=== PATIENT | male | born 1950 | race Caucasian/White ===

== ENCOUNTER 2023-11-16 07:21 | Outpatient (CLI) | payer MEDICARE, OTHER, SELFPAY ==
--- NOTE | ~2023-11-16 | US_ITS ---
EXAMINATION:US venous doppler LE RT INDICATION:Leg edema TECHNIQUE: Multiple grayscale, color flow and Doppler images of the right lower extremity deep venous systems were obtained and reviewed. COMPARISON:06/09/2019 FINDINGS: The common femoral, superficial femoral and popliteal veins demonstrate normal respiratory variation, augmentation and compressibility. Color flow is also seen within the posterior tibial, pe roneal, greater saphenous and profunda veins. IMPRESSION: 1: No lower extremity deep venous thrombosis. Reviewed, dictated and finalized at location B.
[2023-11-16 08:32] LABS: Basophils Absolute Auto 0.1 K/mm3 (0.0-0.1); Basophils Percent Auto 1.4 % (0.2-1.2); Eosinophils Absolute Auto 0.3 K/mm3 (0-0.3); Eosinophils Percent Auto 5.8 % (0-4.4); Hematocrit 40.6 % (42.0-52.0); Hemoglobin 12.9 g/dL (14.0-18.0); Immature Granulocyte Absolute 0.01 K/mm3 (0.00-0.031); Immature Granulocyte Percent A 0.2 % (0-0.5); Lymphocytes Absolute Auto 1.08 K/mm3 (0.9-3.2); Lymphocytes Percent Auto 19.6 % (18.3-44.2); Mean Corpuscular HGB Conc 31.8 g/dl (32-36); Mean Corpuscular Hemoglobin 29.3 pg (26-34); Mean Corpuscular Volume 92.3 fl (80-100); Monocytes Absolute Auto 0.6 K/mm3 (0.1-0.6); Monocytes Percent Auto 11.2 % (2.6-8.5); Neutrophils Absolute Auto 3.4 K/mm3 (1.3-6.7); Neutrophils Percent Auto 61.8 % (45.5-73.1); Platelet Count Result 155 k/mm3 (150-375); White Blood Count 5.5 K/mm3 (4.5-10.0)
[2023-11-16 08:41] LABS: Alanine Aminotransferase 27 U/L (6-50); Albumin Level 4.1 g/dL (3.5-5.1); Alkaline Phosphatase 50 U/L (38-126); Anion Gap 4 mmol/L (4-12); Aspartate Amino Transferase 31 U/L (17-59); Bilirubin,Total 0.9 mg/dL (0.2-1.3); Blood Urea Nitrogen 13 mg/dL (9-20); Carbon Dioxide 26 mmol/L (22-30); Chloride 110 mmol/L (98-107); Cholesterol 143 mg/dL (0-200); Estimated Glomerular Filt Rate > 60; Glucose 102 mg/dL (65-110); HDL Direct 73 mg/dL; Potassium 4.5 mmol/L (3.4-5.0); Sodium 140 mmol/L (137-145); Triglycerides 61 mg/dL (<150)
[2023-11-16 08:53] LABS: LDL Cholesterol Direct 54 mg/dL
== END 2023-11-16 07:22 | disposition home or self-care (01) ==
PROVIDERS: PCP Family Medicine; Visit Provider Family Medicine
DX: Z00.00 Encounter for general adult medical examination without abnormal findings (principal); I10 Essential (primary) hypertension; E78.5 Hyperlipidemia, unspecified; Z12.5 Encounter for screening for malignant neoplasm of prostate; R60.0 Localized edema; M79.604 Pain in right leg
CPT/HCPCS: 36415; 80048; 80061; 80076; 85025; 93971

== ENCOUNTER 2023-12-16 07:40 | Emergency (ER) | payer MEDICARE, OTHER, SELFPAY ==
[2023-12-16 07:44] VITALS: BP 154/79; PULSE 66; RESP 18; TEMP 36.6; O2SAT 99
[2023-12-16 07:49] VITALS: BP 154/79; PULSE 64; RESP 20; O2SAT 97
[2023-12-16 07:50] VITALS: PULSE 65; RESP 15; O2SAT 98
[2023-12-16 08:02] VITALS: BP 151/73; PULSE 67; RESP 20; O2SAT 97
[2023-12-16 08:40] LABS: Basophils Absolute Auto 0.1 K/mm3 (0.0-0.1); Basophils Percent Auto 0.6 % (0.2-1.2); Eosinophils Percent Auto 0.4 % (0-4.4); Hematocrit 40.4 % (42.0-52.0); Hemoglobin 12.7 g/dL (14.0-18.0); Immature Granulocyte Absolute 0.05 K/mm3 (0.00-0.031); Immature Granulocyte Percent A 0.5 % (0-0.5); Lymphocytes Absolute Auto 2.05 K/mm3 (0.9-3.2); Lymphocytes Percent Auto 19.1 % (18.3-44.2); Mean Corpuscular HGB Conc 31.4 g/dl (32-36); Mean Corpuscular Hemoglobin 29.4 pg (26-34); Mean Corpuscular Volume 93.5 fl (80-100); Mean Platelet Volume 8.8 fl (7.4-10.4); Monocytes Percent Auto 9.6 % (2.6-8.5); Neutrophils Absolute Auto 7.5 K/mm3 (1.3-6.7); Neutrophils Percent Auto 69.8 % (45.5-73.1); Platelet Count Result 190 k/mm3 (150-375); Red Blood Count 4.32 M/mm3 (4.6-6.20); Red Cell Distribution Width 15.1 % (11.5-14.5); White Blood Count 10.7 K/mm3 (4.5-10.0)
[2023-12-16 08:51] LABS: Alanine Aminotransferase 49 U/L (6-50); Albumin Level 3.9 g/dL (3.5-5.1); Alkaline Phosphatase 46 U/L (38-126); Anion Gap 1 mmol/L (4-12); Aspartate Amino Transferase 49 U/L (17-59); Bilirubin,Total 0.7 mg/dL (0.2-1.3); Blood Urea Nitrogen 13 mg/dL (9-20); Calcium 8.9 mg/dL (8.4-10.2); Carbon Dioxide 32 mmol/L (22-30); Chloride 107 mmol/L (98-107); Estimated CRCL calculation 73 ml/min; Estimated Glomerular Filt Rate > 60; Glucose 86 mg/dL (65-110); Potassium 3.9 mmol/L (3.4-5.0); Sodium 140 mmol/L (137-145)
[2023-12-16 08:57] LABS: Prothrombin Time 13.2 Seconds (11.1-14.7)
[2023-12-16 09:17] VITALS: BP 136/78; PULSE 67; RESP 17; O2SAT 95
--- NOTE | 2023-12-16 09:52 | ED.GENADULT ---
HPI - General Adult General Chief complaint: Extremity Problem,Nontraumatic Stated complaint: cellultis RLE Time Seen by Provider: 12/16/23 07:53 Source: patient Mode of arrival: ambulatory Limitations: no limitations History of Present Illness HPI narrative: 73-year-old with a history of hypertension, hyperlipidemia, CAD here with a complaint of pain and swelling to his right lower extremity which is been ongoing for past several days. Patient states that he has seen his primary doctor had a venous Doppler study which was negative for DVT. He is presently taking penicillin for the cellulitis of his right leg. He denies any fever or chills. Patient states that he is allergic to all penicillins and cephalosporins. Patient states that he gets thrush from the antibiotic Onset (ago): week(s) (2) Location: lower extremity (Right lower) Severity: mild Pain Consistency: constant Relieving factors: none Exacerbating factors: none Treatments prior to arrival: none Related Data Home Medications Medication Instructions Recorded Confirmed aspirin,buffered (calcium 325 mg PO DAILY 06/09/19 04/12/22 carbonate-magnesium) 325 mg tablet atorvastatin 40 mg tablet 40 mg PO DAILY 06/09/19 04/12/22 isosorbide mononitrate 60 mg 60 mg PO DAILY 06/09/19 04/12/22 tablet,extended release 24 hr losartan 25 mg tablet 25 mg PO DAILY 06/09/19 04/12/22 omeprazole 20 mg capsule,delayed 20 mg PO DAILY 06/09/19 04/12/22 release prasugrel 10 mg tablet (Effient) 10 mg PO DAILY 06/09/19 04/12/22 Allergies Allergy/AdvReac Type Severity Reaction Status Date / Time No Known Drug Allergies Allergy Unknown NONE Verified 04/12/22 09:56 Review of Systems Review of Systems: All systems reviewed & are unremarkable except as noted in HPI and below Constitutional: Constitutional: Reports no additional constitutional complaints Eyes: Eyes: Reports no additional eye complaints ENT: Reports system reviewed and no additional complaints, except as documented Cardiovascular: Cardiovascular: Reports no additional cardiovascular complaints Respiratory: Respiratory: Reports no additional respiratory complaints Musculoskeletal: Musculoskeletal: Reports as per HPI [facility] Past Medical History Medical History Acute medial meniscus tear of right knee CAD (coronary artery disease) History of triple bypass surgery in 2001. Approximately 8 stents over several years. Chondromalacia, right knee Degenerative disc disease, cervical DVT (deep venous thrombosis) Left leg after an injury to the left knee Esophageal ulcer Fungal skin disease GERD (gastroesophageal reflux disease) HLD (hyperlipidemia) HTN (hypertension) IBS (irritable bowel syndrome) Mixed Kidney stone Myocardial infarction x3 Pneumonia x2 Rheumatic fever Right clavicle fracture Sleep apnea treated with nocturnal BiPAP Surgical History Surgical History H/O angioplasty x2 H/O cardiac catheterization H/O heart artery stent x8 H/O left knee surgery Due to meniscal tear History of cholecystectomy Hx of CABG Left Achilles tendinitis (03/13/19) Family History Family History Mother Family history of cardiovascular disease Father Family history of cardiovascular disease Son Family history of cardiovascular disease Other Hypertension Social History Social History Social History: The patient lives with his Cuca who is designated to be the durable power district attorney for healthcare. If the is unable to do the power of district attorney then the daughter Vicky will take over from there. Patient is lifelong nonsmoker. He they have 3 children together. 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 Smoking stat
== END 2023-12-16 10:12 | disposition home or self-care (01) ==
PROVIDERS: Emergency Provider Family Medicine; PCP Internal Medicine
DX: L03.115 Cellulitis of right lower limb (principal); I25.10 Atherosclerotic heart disease of native coronary artery without angina pectoris; Z86.718 Personal history of other venous thrombosis and embolism; K21.9 Gastro-esophageal reflux disease without esophagitis; E78.5 Hyperlipidemia, unspecified; I10 Essential (primary) hypertension; Z87.442 Personal history of urinary calculi; I25.2 Old myocardial infarction; G47.30 Sleep apnea, unspecified
CPT/HCPCS: 36415; 80053; 83605; 85025; 85610; 99283

== ENCOUNTER 2024-01-28 13:24 | Outpatient (CLI) | payer MEDICARE, OTHER, SELFPAY ==
--- NOTE | ~2024-01-28 | MR_ITS ---
EXAMINATION: MR lower leg RT wo con DATE: 01/28/2024 15:01 INDICATION: Right lower limb pain TECHNIQUE: Magnetic resonance imaging (MRI) of the right lower leg was performed without intravenous contrast. Sequences included axial, sagittal and coronal T1-weighted FSE and fluid sensitive FSE STIR . COMPARISON: None. FINDINGS: There is small fluid collection likely posttraumatic hematoma extending along an acute tear along the myotendinous junction of the aponeurosis of the medial head of the gastrocnemius muscle. This extend s approximately 12 cm in craniocaudal length. The exact location, length and configuration of the tea r plane is unable to be ascertained due to small amount of motion artifact on the axial sequences. Th ere is prominent thickening of the medial side of the low signal intensity aponeurosis which suggests scarring related to a more chronic tear. There is suggestion of scarring along the aponeurosis of th e medial head of the contralateral left gastrocnemius muscle which appears thickened on the coronal i mages. There is normal bone marrow signal throughout both lower legs. IMPRESSION: 1. Likely acute on chronic partial tear along the myotendinous junction of the aponeurosis of the med ial head of the gastrocnemius muscle. Reviewed, dictated and finalized at location A. IMPRESSION: 1. Likely acute on chronic partial tear along the myotendinous junction of the aponeurosis of the medial head of the gastrocnemius muscle.
== END 2024-01-28 13:25 | disposition home or self-care (01) ==
LOC: ANHIMG 13:28
PROVIDERS: PCP Internal Medicine; Visit Provider Internal Medicine
DX: M79.604 Pain in right leg (principal)
CPT/HCPCS: 73718

== ENCOUNTER 2024-03-24 10:03 | Outpatient (CLI) | payer MEDICARE, OTHER, SELFPAY ==
--- NOTE | ~2024-03-24 | US_ITS ---
EXAMINATION: US arterial ankle brachial ind DATE: 03/24/2024 10:56 INDICATION: Embolism and thrombosis of arteries of the lower extremities. TECHNIQUE: Segmental pressures and plethysmographic and Doppler waveforms of the brachial and lower e xtremity arteries were obtained. COMPARISON: None. FINDINGS: Right and left brachial artery pressures of 146 mm Hg and 144 mm Hg, respectively, are concordant (no rmal difference <= 30 mmHg). The right ankle-brachial index (CARLITO) is 1.27 (normal >= 0.9-1.0). The right great toe-brachial index (TBI) is 0.86 (normal >= 0.65). Arterial Doppler waveforms are biphasic with brisk systolic upstrokes at both right posterior tibial and dorsalis pedis arteries. The left CARLITO is 1.27. The left TBI is 1.09. Arterial Doppler waveforms are biphasic with brisk systol ic upstrokes at both left posterior tibial and dorsalis pedis arteries. IMPRESSION: 1. No significant arterial occlusive disease with normal bilateral ABIs and TBIs. Reviewed, dictated and finalized at location B. IMPRESSION: 1. No significant arterial occlusive disease with normal bilateral ABIs and TBI s.
== END 2024-03-24 10:04 | disposition home or self-care (01) ==
LOC: ANHIMG 10:07
PROVIDERS: PCP Internal Medicine; Visit Provider Orthopaedic Surgery
DX: I73.9 Peripheral vascular disease, unspecified (principal)
CPT/HCPCS: 93922

== ENCOUNTER 2025-01-29 01:24 | Day surgery (SDC) | payer MEDICARE, OTHER, SELFPAY ==
[2025-01-12 10:36] VITALS: BMI 24.7
--- NOTE | 2025-01-12 10:57 | PC.NURSE ---
Discussed with pt to stop Plavix, last dose being 01/24/25. Pt stated understanding.
--- OUTSIDE RECORDS SUMMARY | 2025-01-29 01:28 | XMS_ITS | Clinical Summary ---
Author Organization [facility] Address [address] [facility] [place] [address] Phone Care Team Providers Care Bow String Maker Name Role Phone Viviana Dodge MD Primary Care Provider + Evaristo Hutchins MD Unavailable Allergies No known active allergies Medications atorvastatin (LIPITOR) 40 MG Tablet Take by mouth. 06/10/2018 Active aspirin 325 MG Tablet Take 81 mg by mouth. Active losartan (COZAAR) 25 MG Tablet Take by mouth. Active verapamil (CALAN SR; ISOPTIN SR) 180 MG Tablet Controlled Release Take by mouth. 07/27/2017 Active prasugrel HCl (EFFIENT) 10 MG Tablet TAKE 1 TABLET BY MOUTH EVERY DAY 09/10/2017 Active omeprazole (PRILOSEC) 20 MG CAPSULE DELAYED RELEASE Take 20 mg by mouth daily. 1 04/09/2018 Active clopidogrel (PLAVIX) 75 MG Tablet Take 75 mg by mouth daily. 10/21/2019 Active isosorbide mononitrate (IMDUR) 60 MG TABLET SR 24 HR Take 60 mg by mouth. 03/25/2015 Active metoprolol tartrate (LOPRESSOR) 25 MG Tablet TAKE 1 TABLET BY MOUTH EVERY 12 HOURS 12/02/2019 Active Melatonin-Pyrido xine (MELATONEX PO) Take by mouth. Active traZODone (DESYREL) 50 MG Tablet Take 50 mg by mouth nightly. Active Active Problems Problem Noted Date Diagnosed Date Dyslipidemia 01/18/2022 Class 2 severe obesity due t o excess calories with serious comorbidity in adult 10/21/2018 Sleep apnea 07/10/2018 Non morbid obesity 07/10/2018 Hypertension 07/10/2018 Immunizations Immunization Administration Dates Next Due Influenza Vaccine, Quadrivalent, PF 04/27/2022 Influenza, Quadrivalent, Adjuvanted 06/13/2023,1 07/18/2020 Influenza, high-dose, trivalent, PF 11,04/07/2020,05/05/2019, 018 Pneumococcal Vaccine - 13 Valent 05/05/2019 Social History Tobacco Use Types Packs/Day Years Used Date Smoking Tobacco: Never Smokeless Tobacco: Never Tobacco Cessation:Counseling Given: No Alcohol Use Standard Drinks/Week Comments Yes 0 (1 standard drink = 0.6 oz pur e alcohol) Sexually Active Control Partners Comments Not Currently Sex and Gender Information Value Date Recorded Sex Assigned at Not on file Legal Sex Male 1:50 PM BACTERIOLOGIST FOOD Gender Identity Not on file Sexual Orientation Not on file Last Filed Vital Signs Vital Sign Reading Time Taken Comments Blood Pressure 132/84 07/31/2024 10:06 AM BACTERIOLOGIST FOOD Pulse 64 07/31/2024 10:06 AM BACTERIOLOGIST FOOD Temperature 36.7 C (98.1 F) 07/31/2024 10:06 AM BACTERIOLOGIST FOOD Respiratory Rate 14 07/31/2024 10:06 AM BACTERIOLOGIST FOOD Oxygen Saturation 98% 07/31/2024 10:06 AM BACTERIOLOGIST FOOD Inhaled Oxygen Concentration - - Weight 99.5 kg (219 lb 4.8 oz) 07/31/2024 10:06 AM BACTERIOLOGIST FOOD Height 175.3 cm (5' 9) 07/31/2024 10:06 AM BACTERIOLOGIST FOOD Body Mass Index 32.38 07/31/2024 10:06 AM BACTERIOLOGIST FOOD Plan of Treatment Upcoming Encounters Date Type Department Care Team (Late st Contact Info) Description 03/05/2025 10:45 AM CDT Office Visit [facility] - Pulmonology & Sleep Medicine [facility] [address] [place] [address] Evaristo Hutchins MD [address] [place] [phone] Health Maintenance Due Date Last Done Comments Hepatitis C Virus (HCV) Screening 1950 TdaP Immunization 1950 Cologuard 1996 Immunochemical Fecal Occult Blood 1996 Zoster Immunization (1 of 2) 2001 Pneumococcal Immunization (50+ years) (2 of 2 - PPSV23) 05/05/2020 05/05/2019 SARS-COV-2 Immunization (3 - season) 2024 10/04/2020, 08/25/2020 Influenza Immunization (#1) 2025 11, 06/13/2023, 04/27/2022, Additional history exists Respiratory Syncytial Virus (RSV) Immunization (Adult) (1 - 1-dose 75+ series) 2026 Colonoscopy 06/21/2028 06/21/2018 Colorectal Cancer Screening 06/21/2028 Pneumococcal Immunization Combined Discontinued 05/05/2019 Hepatitis B Immunization Aged Out No longer eligible based on patient's age to complete this topic Human Papillomavirus (HPV) Immunization Aged Out No longer eligible based on patient's age to complete this topic Meningococcal Immunization (ACWY) Aged Out No longer eligible based on patient's age to complete this topic Rotavirus Immunization Aged Out No lo nger eligible based on patient's age to complete this topic Insurance MEDICARE [facility] Care Teams Bow String Maker Relationship Specialty Start Date End Date Viviana Dodge MD [address] [place] [id number] PCP - General Family Medicine 09/27/22 Evaristo Hutchins MD [address] [place] [phone] Consulting Physician Pulmonary Disease 09/27/22
--- OUTSIDE RECORDS SUMMARY | 2025-01-29 01:28 | XMS_ITS | Clinical Summary ---
Author Organization [facility] [facility] [address] Address [address] [place] [address] Care Team Providers Care Farm Facility Manager Name Role Phone Raoul Evans MD Primary Care Provider [phone] Allergies No known active allergies Medications aspirin 81 mg enteric coated tablet Take 1 tablet (81 mg total) by mouth daily Active nitroglycerin (NITROSTAT) 0.[address] 1 tablet (0.4 mg total) under the tongue every 5 (five) minutes as needed for chest pain after 3 tab in 15 min Call 911 25 tablet 11 07/14/20 20 Active traZODone (DESYREL) 100 mg tablet TAKE 1 TABLET BY MOUTH EVERY DAY AT BEDTIME NEEDED FOR INSOMNIA 05/24/20 22 Active isosorbide mononitrate ER (IMDUR) 60 mg 24 hr tablet TAKE 1 TABLET BY MOUTH EVERY DAY 90 tablet 2 10/24/19 25 Active clopidogreL (PLAVIX) 75 mg tablet TAKE 1 TABLET BY MOUTH EVERY DAY 90 tablet 2 10/24/19 25 Active metoprolol XL (TOPROL-XL) 25 mg extended release tablet TAKE 1 TABLET BY MOUTH EVERY DAY 90 tablet 2 10/24/19 25 Active losartan (COZAAR) 50 mg tablet TAKE 1 TABLET BY MOUTH EVERY DAY 90 tablet 2 01/06/20 25 Active atorvastatin (LIPITOR) 40 mg tablet TAKE 1 TABLET BY MOUTH EVERY DAY 90 tablet 2 01/16/20 25 Active atorvastatin (LIPITOR) 40 mg tablet TAKE 1 TABLET BY MOUTH EVERY DAY 90 tablet 3 10/16/19 24 025 Discontinued losartan (COZAAR) 50 mg tablet TAKE 1 TABLET BY MOUTH EVERY DAY 90 tablet 07/28/19 25 025 Discontinued Active Problems Problem Noted Date Diagnosed Date Coronary artery disease of n ative artery of [place] heart with stable angina pectoris 02/28/2017 S/P CABG (coronary artery bypass graft) 02/29/20 17 Status post insertion of drug eluting coronary a rtery stent 02/28/2017 Obstructive sleep apnea syndrome 06/04/2011 Gastroesophageal reflux disease 06/04/2011 Atherosclerosis of coronary artery 06/04/2011 Dyslipidemia 06/04/2011 Immunizations Immunization Administration Dates Next Due Influenza, Unspecified 04/15/2019 Surgical History Surgery Date Site/Laterality Comments CORONARY ARTERY BYPASS GRAFT 07/16/2002 - 07/15/2003 CHOLECYSTECTOMY ACHILLES TENDON REPAIR x2 CORONARY ANGIOPLASTY WITH ST ENT PLACEMENT 07/16/2012 - 07/15/2013 BACK SURGERY 09/13/2017 - 10/13/2017 KNEE ARTHROSCOPY CARDIAC CATHETERIZATION CORONARY STENT PLACEMENT Medical History Medical History Date Comments Rheumatic fever Rheumatic fever Hypertension Hypertension Chronic coronary artery disease Coronary Artery Disease Osteoarthritis Osteoarthritis Hx Other Medical Carpal Tunnel Hx Other Medical Cervical proble ms Hyperlipidemia Heart murmur Social History Tobacco Use Types Packs/Day Years Used Date Smoking Tobacco: Never Smokeless Tobacco: Never Tobacco Cessation:Counseling Given: Not Answered Alcohol Use Standard Drinks/Week Comments Yes 1 (1 standard drink = 0.6 oz pur e alcohol) 1/month-rarely PHQ-2 Answer Date Recorded PHQ-2 Total Score (If total score is 3 or more points, staff should administer the PHQ-9) 0 10/21/2019 Sex and Gender Information Value Date Recorded Sex Assigned at Not on file Legal Sex Male 1:56 AM BAKER PAINT Gender Identity Not on file Sexual Orientation Not on file Obstetrics History Last Filed Vital Signs Vital Sign Reading Time Taken Comments Blood Pressure 122/70 09/30/2024 8:43 AM CDT Pulse 54 09/30/2024 8:43 AM CDT Temperature 36.8 C (98.2 F) 01/12/2020 6:16 PM CDT Respiratory Rate 18 01/12/2020 6:16 PM CDT Oxygen Saturation 97% 09/30/2024 8:43 AM CDT Inhaled Oxygen Concentration - - Weight 79.8 kg (176 lb) 06/14/2023 8:46 AM BAKER PAINT Height 175.3 cm (5' 9) 06/14/2023 8:46 AM BAKER PAINT Body Mass Index 25.99 06/14/2023 8:46 AM BAKER PAINT Plan of Treatment Health Maintenance Due Date Last Done Comments Fall Risk Assessment 1950 Hepatitis C Screening 1950 DTaP/Tdap/Td Vaccine (1 - Tdap) 1962 Hepatitis B Screening 1969 Zoster Vaccine (1 of 2) 2001 Well Visit 65+ 2016 Pneumococcal vaccine 65+ (2 of 2 - PPSV23) 06/30/2019 05/05/2019 Depression Screening 10/20/2020 10/21/2019 Influenza Vaccine (#1) 2025 4, 04/27/2022, 04/07/2020, Additional history exists Colon Cancer Screening-Colonoscopy 06/21/2028 06/21/2018 Colon Cancer Screening-CT Colonography Discontinued 06/21/2018 Colon Cancer Screening-DNA Stool Discontinued 06/21/20 Colon Cancer Screening-FIT Discontinued 06/21/2018 Colon Cancer Screening-Sigmoidoscopy Discontinued 06/21/2018 Medical Devices Implanted Type Area General Assembler Device Identifier Shelf Expiration Date Model / Serial / Lot [employer] X [id number] Resolute [place] 2.5mm 2.1-2.7fr 26mm 140cm Rapid Exchange - [id number] Implanted:Qty: 1 on 08/15/2019 by Reuben Hewitt MD PhD at [facility] Stent [employer] 02/03/2021 [id number] / / [id number] [employer] X [id number] Resolute Frandy 2.75mm 2.1-2.7fr 12mm 140cm Rapid Exchange - [id number] Implanted:Qty: 1 on 08/15/2019 by Reuben Hewitt MD PhD at [facility] Stent [employer] 11/08/2019 [id number] / / [id number] Daig [employer] [id number] Angio-Seal Evolution 6fr .035in Guidewire Bypass Tube Suture - [id number] Implanted:Qty: 1 on 08/15/2019 by Reuben Hewitt MD PhD at [facility] Stent [employer] 04/14/2020 [id number] / / [id number] Procedures Procedure Name Priority Date/Time Associated Diagnosis Comments COLONOSCOPY 06/21/2018 12:50 PM BAKER PAINT from Last 3 Months or Most Recently Relevant to Health Maintenance Results * COLONOSCOPY (06/21/2018 12:50 PM BAKER PAINT) Anatomical Region Laterality Modality Other Narrative Procedure Note Dada Andino MD - 06/21/2018 12:50 PM [facility] END[facility] Patient Name: Jessica Long Procedure Date: 06/21/2018 12:50 PM Date of : 1950 Admit Type: Outpatient Age: 67 Gender: Male Attending MD: Dada Andino M.D. Room: [place] [address] Note Status: Finalized Procedure Date No Time: 06/21/2018 Procedure: Colonoscopy Indications: Screening for colorectal malignant neoplasm, Last colonoscopy 5 years ago Providers: Dada Andino M.D. Referring MD: Dada Martinez MD Medicines: Monitored Anesthesia Care Complications: No immediate complications. Estimated Blood Loss: Estimated blood loss was minimal. Procedure: Pre-Anesthesia Assessment: - Immediately prior to administration of medications,the patient was re-assessed for adequacy to receivesedatives. The benefits, risks and alternatives of the procedureand sedation were discussed and informed consent wasobtained. All questions were answered. Please refer to the signed informed consent document in the medical record. Thescope was passed under direct vision. The [id number] introduced through the anus and advanced to the thececum, identified by appendiceal orifice and ileocecal valve.The bowel preparation used was GoLYTELY. Bowel prep was administered using a split dose. The quality of thebowel preparation was evaluated using the BBPS (Loman Bowel Preparation Scale) with scores of: Right Colon = 2(minor amount of residual staining, small fragments of stool and/or opaque liquid, but mucosa seen well), Transverse Colon = 2 (minor amount of residual staining, small fragments of stool and/or opaque liquid, but mucosaseen well) and Left Colon = 2 (minor amount of residual staining, small fragments of stool and/or opaqueliquid, but mucosa seen well). The total BBPS score equals 6. Findings: A 5 mm polyp was found in the ascending colon. The polyp was sessile. The polyp was removed with a cold snare. Resection and retrieval were complete. Multiple small and large-mouthed diverticula were found in thesigmoid colon. Impression: - One 5 mm polyp in the ascending colon. Resected and retrieved. - Diverticulosis in the sigmoid colon. Recommendation: - Await pathology results. - Return to referring physician as previouslyscheduled. Attending Participation: I personally performed the entire procedure. Electronically signed by Dada Andino M.D. Dada Andino M.D. 06/21/2018 1:17:36 PM Number of Addenda: 0 Note Initiated On: 06/21/2018 12:50 PM Dada Andino MD ENDOSCOPY PROCEDURES Final Result from Last 3 Months or Most Recently Relevant to Health Maintenance Insurance [id number] MEDICARE [facility] [id number] [facility] MEDICARE [facility] Address: [address] [address] [facility] [place] [address] Advance Directives For more information, please contact: [phone] * Full Code (Latest Code Status on File) Date Activated Date Inactivated Comments 08/15/2019 1:51 PM 08/15/2019 6:59 PM * Full Code Date Activated Date Inactivated Comments 06/21/2018 12:35 PM 06/21/2018 4:29 PM Care Teams Farm Facility Manager Relationship Specialty Start Date End Date Raolu Evans MD PCP - General Internal Medicine 09/30/24
--- OUTSIDE RECORDS SUMMARY | 2025-01-29 01:28 | XMS_ITS | Referral Summary ---
Author Organization [facility] [place], [place] [address] [place] [address] Care Team Providers Care Lock Installer Name Role Phone Raoul Evans MD Primary Care Provider [phone] Allergies No known active allergies Medications aspirin [...] artery disease of n ative artery of apache heart with stable angina pectoris 02/28/2017 S/P CABG (coronary artery bypass graft) 02/29/20 17 Status post insertion of drug eluting coronary a rtery stent 02/28/2017 Obstructive sleep apnea syndrome 06/04/2011 Gastroesophageal reflux disease 06/04/2011 Atherosclerosis of coronary artery 06/04/2011 Dyslipidemia 06/04/2011 Immunizations Immunization Administration Dates Next Due Influenza, Unspecified 04/15/2019 Social History Tobacco Use Types Packs/Day Years [...] on file Legal Sex Male 1:56 AM WEB CONTENT COORDINATOR Gender Identity Not on file Sexual Orientation [...] 79.8 kg (176 lb) 06/14/2023 8:46 AM WEB CONTENT COORDINATOR Height 175.3 cm (5' 9) 06/14/2023 8:46 AM WEB CONTENT COORDINATOR Body Mass Index 25.99 06/14/2023 8:46 AM WEB CONTENT COORDINATOR Plan of Treatment Not on file Medical Devices Implanted Type Area Outdoor Adventure Guides Device Identifier Shelf Expiration Date Model / Serial / Lot [employer] X [id number] Resolute [place] 2.5mm 2.1-2.7fr 26mm 140cm Rapid Exchange - [id number] Implanted:Qty: 1 on 08/15/2019 by Reuben Hewitt MD PhD at [facility] Stent [employer] 02/03/2021 [id number] / / [id number] [employer] X [id number] Resolute [place] 2.75mm 2.1-2.7fr 12mm 140cm Rapid Exchange - [id number] Implanted:Qty: 1 on 08/15/2019 by Reuben Hewitt MD PhD at [facility] [employer] 11/08/2019 [id number] / / [id number] Daig [employer] [id number] Angio-Seal Evolution 6fr .035in Guidewire Bypass Tube Suture - [id number] Implanted:Qty: 1 on 08/15/2019 by Reuben Hewitt MD PhD at [facility] Stent [employer] 04/14/2020 [id number] / / [id number] Procedures Procedure Name Priority Date/Time Associated Diagnosis Comments COLONOSCOPY 06/21/2018 12:50 PM WEB CONTENT COORDINATOR from Last 3 Months or Most Recently Relevant to Health Maintenance Results * COLONOSCOPY (06/21/2018 12:50 PM WEB CONTENT COORDINATOR) Anatomical Region Laterality Modality Other Narrative Procedure Note Dada Andino MD - 06/21/2018 12:50 PM [facility] ENDOSCOPY [facility] Patient Name: Jessica Long Procedure Date: 06/21/2018 12:50 PM Date of : 1950 Admit Type: Outpatient Age: 67 Gender: Male Attending MD: Dada Andino M.D. Room: [place] [address] Note Status: Finalized Procedure Date No Time: [...] Thescope was passed under direct vision. The [id number] introduced through the anus and advanced to the thececum, identified by appendiceal orifice and ileocecal valve.The bowel preparation used was GoLYTELY. Bowel prep was administered using a split dose. The quality of thebowel preparation was evaluated using the BBPS ([place] Bowel Preparation Scale) with scores of: Right [...] Most Recently Relevant to Health Maintenance Insurance MEDICARE [facility] Address: [address] [address] [facility] MEDICARE [place] [facility] [place] [id number] MEDICARE [place], [place] [address] Advance Directives For more information, please contact: [phone] * Full Code (Latest Code Status on File) Date Activated Date Inactivated Comments 08/15/2019 1:51 PM 08/15/2019 6:59 PM * Full Code Date Activated Date Inactivated Comments 06/21/2018 12:35 PM 06/21/2018 4:29 PM Care Teams Lock Installer Relationship Specialty Start Date End Date Raoul vEans MD PCP - General Internal Medicine 09/30/24
--- OUTSIDE RECORDS SUMMARY | 2025-01-29 01:28 | XMS_ITS | Clinical Summary ---
Author Organization [facility] Address [address] [place] [address] Care Team Providers Care Planning Aide Name Role Phone Dada Martinez MD Primary Care Provider [phone] Source Comments [facility],non-owned Affiliates and Associated Physician Practices is amultiple site organization consisting of ambulatory clinics and hospital sitesin [place], [place], [place] and [place]. This disclosure is being madepursuant to the Care Everywhere program and may not contain all information available regarding this patient. Last updated 18.[facility] Allergies No known active allergies Medications * Be aware that medications may not be up to date on this document. Alwaysverify current medications with the patient. aspirin EC (ECOTRIN) 81 MG tablet Take 81 mg by mouth once daily Active atorvastatin (LIPITOR) 40 MG tablet Take 40 mg by mouth once daily 08/09/2021 Active clopidogrel (PLAVIX) 75 MG tablet Take 1 tablet by mouth once daily 06/13/2021 Active isosorbide mononitrate CR 24hr (IMDUR) 60 MG tablet Take 1 tablet by mouth once daily 08/10/2021 Active losartan (COZAAR) 50 MG tablet Take 50 mg by mouth once daily 10/19/2021 Active Active Problems No known active problems Social History Tobacco Use Types Packs/Day Years Used Date Smoking Tobacco: Never Smokeless Tobacco: Never Alcohol Use Standard Drinks/Week Comments Not Currently 0 (1 standard drink = 0.6 oz pur e alcohol) drinks wine once a month Sex and Gender Information Value Date Recorded Sex Assigned at Not on file 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 Gender Identity Not on file Sexual Orientation Not on file Last Filed Vital Signs Vital Sign Reading Time Taken Comments Blood Pressure 159/88 10/25/2021 10:01 AM CDT Pulse 76 10/25/2021 10:01 AM CDT Temperature - - Respiratory Rate - - Oxygen Saturation - - Inhaled Oxygen Concentration - - Weight 95.7 kg (211 lb) 10/25/2021 10:01 AM CDT Height 172.7 cm (5' 8) 10/25/2021 10:01 AM CDT Body Mass Index 32.08 10/25/2021 10:01 AM CDT Plan of Treatment Health Maintenance Due Date Last Done Comments COLOGUARD (AGES 45-75) - COLON CA SCREENING 1950 COLON MONITORING 1950 COLONOSCOPY - COLON CA SCREENING 1950 CT COLONOGRAPHY - COLON CA SCREENING 1950 Colorectal Cancer Screening 1950 FIT - COLON CA SCREENING 1950 FLEX SIG - COLON CA SCREENING 1950 MEDICARE AWV 12 MONTHS 1950 HEPATITIS C SCREENING 08/22/1969 DTAP/TDAP/TD VACCINES (1 - Tdap) 1970 PNEUMOCOCCAL VACCINE 50+ (1 of 1 - PCV) 2001 ZOSTER VACCINE (1 of 2) 2001 COVID-19 VACCINE (1 - 2023- season) 2024 SCREENING FOR DIABETES 05/19/2024 1, 05/02/2017, 05/02/2017 DEPRESSION SCREENING 07/16/2024 INFLUENZA VACCINE (#1) 2025 0, 05/05/2019, 04/15/2019, Additional history exists Respiratory Syncytial Virus (RSV) Vaccine Pt: or over 60 yrs (1 - 1-dose 75+ series) 2026 HEPATITIS B VACCINE Aged Out No longe r eligible based on patient's age to complete this topic HIB VACCINE Aged Out No longer eligi ble based on patient's age to complete this topic HPV VACCINE Aged Out No longer eligi ble based on patient's age to complete this topic MENINGOCOCCAL (Group B) VACCINE SHARED DECISION-MAKING Aged Out No longer eligible based on patient's age to complete this topic MENINGOCOCCAL GROUPS A/C/Y/W VACCINE Aged Out No longer eligible based on patient's age to complete this topic Insurance MEDICARE MEDICARE [facility] Care Teams Planning Aide Relationship Specialty Start Date End Date Dada Martinez MD [id number] [place] [address] PCP - General Internal Medicine 10/25/21
--- OUTSIDE RECORDS SUMMARY | 2025-01-29 01:29 | XMS_ITS | Data Portability ---
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 The patient did not know whether or not the orthopedic surgeon had the MRI results because they did not talk about it. I do not think he has got vascular insufficiency with such a great dorsalis pedis pulse and he has had 2 venous duplexes that have been negative. I will see him in a month [email or web address] Not available 02/04/2024 22:10:21 03/10/2024 03/10/2024 ABIs have been ordered by ortho with a weight those results but again good pulses distally I would like to see him back in 2 months [email or web address] Not available 03/17/2024 15:44:26 05/12/2024 05/12/2024 Atrovent nasal spray blood pressure is controlled CAD secondary preventative measures stay up-to-date on immunizations and screenings insomnia is doing fine follow up with me in 4 months continue current therapy. [email or web address] Not available 05/12/2024 22:13:18 07/28/2024 07/28/2024 with regards to the legs we have had multiple consultations even had a couple of venous duplexes before I even started seeing him for it he was seen cardiology has seen Orthopedics. Unfortunately no etiology has been ascertained and he continues to have problems I am going to get the opinion of Interventional Cardiology who does a lot of lower extremity work. We will make that referral I will see him back in 3 months CBC CMP cardiac lipid panel with inflammatory markers follow up 3 [email or web address] Not available 08/03/2024 20:33:11 10/27/2024 10/27/2024 Continue current therapy colonoscopies healthy lifestyle care instructions follow up 4 months [email or web address] Not available 11/29/2024 19:05:24 Plan of Treatment Reminders Order Date Submit Date Provider Last Modified By Organization Details Last Modified Time Details Appointments ANY 15 2024 10:15A Alon Evans MD Not available Not available Not available Lab lipid panel, serum 2024 025 [facility], [address], [address], [place], [address], 10/07/2024 19:07:45 CMP, serum or plasma 2024 025 [facility], [address], [place], [address], 10/07/2024 19:07:46 CBC w/ auto diff 2024 025 [facility], [address], [place], [address], 10/07/2024 19:07:47 inflammat ion panel, serum or plasma 2024 025 [facility], [address], [place], [address], 10/07/2024 19:07:44 unlisted lab - lipid panel+gly ca 2024 025 [facility], [address], [place], [address], 10/07/2024 19:07:43 CRP, high sensitivi ty, serum or plasma 2024 025 [email or web address], [address], [place], [address], 10/15/2024 11:37:17 lipoprote in a, qn, serum 2024 025 [facility], [address], [place], [address], 10/07/2024 19:07:40 Referral vascular surgeon referral 2024 025 [place], [address], [address], [place], [address], 10/13/2024 11:59:36 Procedures colonosco py screening (PROC) 2024 025 [facility], [address], [id number], [place], [address], 01/27/2025 16:26:46 Surgeries None recorded. Imaging None recorded. Medication Orders trazodone 100 mg tablet 2024 025 [email or web address] [id number], [address], [place], [address], 07/28/2024 12:21:16 ipratropi um bromide 21 mcg (0.03 %) nasal spray 2023 024 [email or web address] [id number], [address], [place], [address], 06/05/2024 14:45:12 Patient TargetsNo targets recorded. Patient Instructions Encounter Date Encounter Id Patient Instructions Last Modified By Organization Details Last Modified Time 02/04/2024 [id number] A healthy lifestyle: care instructions [email or web address] Not available 02/04/2024 22:13:59 03/10/2024 [id number] A healthy lifestyle: care instructions [email or web address] Not available 03/17/2024 15:45:01 07/28/2024 [id number] A healthy lifestyle: care instructions [email or web address] Not available 07/28/2024 12:21:16 10/27/2024 [id number] A healthy lifestyle: care instructions Not available 10/27/2024 13:44:52 Reason for Referral Vascular Surgeon Referral fo r Edema of right lower leg Referring Physician: Sobia Evans, Internal Medicine, Encounter Date: 07/28/2024 Results Created Date Observation Date Name Description Value Unit Range Abnormal Flag Note LastModifiedBy Organization Detail LastModifiedTime 10/07/1910/07/2024 LIPOP ROTEI N (A) lipoprotein (A) 9.3 nmol/ L <75.0 Note: Value s great er than or equal to 75.0 nmol/ L may indic ate an indep enden t risk facto r for CHD, but must be evalu ated with cauti on when appli ed to non-C [place] popul ation s due to the influ ence of kush ic facto rs on Lp(a) acros s ethni citie s. Not Available [facility] ([facility]) [address] [place], [address], 10/07/2024 19:07:40 10/07/1910/07/2024 C-ALEXSANDRA CTIVE PROTE IN, CARDI AC C-reactive protein, cardiac 0.47 mg/L 0.00-3 .00 Relat monalisa Risk for Futur e Cardi ovasc ular Event Low <1.00 Dracut ge 1.00 - 3.00 High >3.00 Not Available [facility] ([facility]) [address] [place], [address], 10/07/2024 19:07:42 10/07/1910/07/2024 LIPID PANEL +GLYC A cholesterol, total 162 mg/dL 100-19 9 Not Available [facility] ([facility]) [address] [place], [address], 10/07/2024 19:07:43 10/07/1910/07/2024 LIPID PANEL +GLYC A triglyceride s 69 mg/dL 0-149 Not Available [facility] ([facility]) [address] [place], [address], 10/07/2024 19:07:43 10/07/1910/07/2024 LIPID PANEL +GLYC A HDL-C 79 mg/dL >39 Not Available [facility] ([facility]) [address] [place], [address], 10/07/2024 19:07:43 10/07/1910/07/2024 LIPID PANEL +GLYC A non-HDL cholesterol 83 mg/dL 0-129 Not Available [facility] ([facility]) [address] [place], [address], 10/07/2024 19:07:43 10/07/1910/07/2024 LIPID PANEL +GLYC A LDL-C (nih calc) 70 mg/dL 0-99 Optim al < 100 Above optim al 100 - 129 Borde rline 130 - 159 High 160 - 189 Very high > 189 Not Available [facility] ([facility]) [address] [place], [address], 10/07/2024 19:07:43 10/07/1910/07/2024 LIPID PANEL +GLYC A glyca 374 umol/ L <400 GlycA Medic al Decis ion Limit : Low Risk <400 High Risk >or=4 00 Not Available [facility] ([facility]) [address] [place], [address], 10/07/2024 19:07:43 10/07/1910/07/2024 ESR-W ES+CR P sedimentatio n rate-westerg joellen 17 mm/HR 0-30 Not Available [facility] ([facility]) [address] [place], [address], 10/07/2024 19:07:44 10/07/1910/07/2024 ESR-W ES+CR P C-reactive protein, quant <1 mg/L 0-10 Not Available [facility] ([facility]) [address] [place], [address], 10/07/2024 19:07:44 10/07/19 25 10/07/2024 LIPID PANEL cholesterol, total 154 mg/dL 100-19 9 Not Available [facility] ([facility]) [address] [place], [address], 10/07/2024 19:07:45 10/07/19 25 10/07/2024 LIPID PANEL triglyceride s 62 mg/dL 0-149 Not Available [facility] ([facility]) [address] [place], [address], 10/07/2024 19:07:45 10/07/19 25 10/07/2024 LIPID PANEL HDL cholesterol 71 mg/dL >39 Not Available [facility] ([facility]) [address] [place], [address], 10/07/2024 19:07:45 10/07/19 25 10/07/2024 LIPID PANEL VLDL cholesterol osmar 13 mg/dL 5-40 Not Available [facility] ([facility]) [address] [place], [address], 10/07/2024 19:07:45 10/07/1910/07/2024 LIPID PANEL LDL chol calc ([facility]) 70 mg/dL 0-99 Not Available [facility]) [address] [place], [address], 10/07/2024 19:07:45 10/07/19 25 10/07/2024 COMP. METAB OLIC PANEL (14) glucose 87 mg/dL 70-99 Not Available [facility] ([facility]) [address] [place], [address], 10/07/2024 19:07:46 10/07/19 25 10/07/2024 COMP. METAB OLIC PANEL (14) BUN 16 mg/dL 8-27 Not Available [facility] ([facility]) [address] [place], [address], 10/07/2024 19:07:46 10/07/19 25 10/07/2024 COMP. METAB OLIC PANEL (14) creatinine 0.95 mg/dL 0.76-1 .27 Not Available [facility] ([facility]) [address] [facility], [place], [address], 10/07/2024 19:07:46 10/07/19 25 10/07/2024 COMP. METAB OLIC PANEL (14) eGFR 85 mL/mi n/1.7 3 >59 Not Available [facility] ([facility]) [address] [facility], [place], [address], 10/07/2024 19:07:46 10/07/19 25 10/07/2024 COMP. METAB OLIC PANEL (14) BUN/creatini ne ratio 17 10-24 Not Available [facility] ([facility]) [address] [place], [address], 10/07/2024 19:07:46 10/07/19 25 10/07/2024 COMP. METAB OLIC PANEL (14) sodium 139 mmol/ L 134-14 4 Not Available [facility] ([facility]) [address] [place], [address], 10/07/2024 19:07:46 10/07/19 25 10/07/2024 COMP. METAB OLIC PANEL (14) potassium 4.9 mmol/ L 3.5-5. 2 Not Available [facility] ([facility]) [address] [place], [address], 10/07/2024 19:07:46 10/07/19 25 10/07/2024 COMP. METAB OLIC PANEL (14) chloride 104 mmol/ L 96-106 Not Available [facility] ([facility]) [address] [place], [address], 10/07/2024 19:07:46 10/07/19 25 10/07/2024 COMP. METAB OLIC PANEL (14) carbon dioxide, total 24 mmol/ L 20-29 Not Available [facility] ([facility]) [address] [facility], [place], [address], 10/07/2024 19:07:46 10/07/19 25 10/07/2024 COMP. METAB OLIC PANEL (14) calcium 9.0 mg/dL 8.6-10 .2 Not Available [facility] ([facility]) [address] [facility], [place], [address], 10/07/2024 19:07:46 10/07/19 25 10/07/2024 COMP. METAB OLIC PANEL (14) protein, total 6.1 g/dL 6.0-8. 5 Not Available [facility] ([facility]) [address] [facility], [place], [address], 10/07/2024 19:07:46 10/07/19 25 10/07/2024 COMP. METAB OLIC PANEL (14) albumin 4.1 g/dL 3.8-4. 8 Not Available [facility] ([facility]) [address] [place], [address], 10/07/2024 19:07:46 10/07/19 25 10/07/2024 COMP. METAB OLIC PANEL (14) globulin, total 2.0 g/dL 1.5-4. 5 Not Available [facility] ([facility]) [address] [place], [address], 10/07/2024 19:07:46 10/07/19 25 10/07/2024 COMP. METAB OLIC PANEL (14) bilirubin, total 0.4 mg/dL 0.0-1. 2 Not Available [facility] ([facility]) [address] [place], [address], 10/07/2024 19:07:46 10/07/19 25 10/07/2024 COMP. METAB OLIC PANEL (14) alkaline phosphatase 57 IU/L 44-121 Not Available [facility]) [address] [facility], [place], [address], 10/07/2024 19:07:46 10/07/1910/07/2024 COMP. METAB OLIC PANEL (14) AST (SGOT) 24 IU/L 0-40 Not Available [facility] ([facility]) [address] [facility], [place], [address], 10/07/2024 19:07:46 10/07/19 25 10/07/2024 COMP. METAB OLIC PANEL (14) ALT (SGPT) 24 IU/L 0-44 Not Available [facility] ([facility]) [address] [facility], [place], [address], 10/07/2024 19:07:46 10/07/19 25 10/07/2024 CBC WITH DIFFE RENTI AL/PL ATELE T WBC 7.1 x10e3 /uL 3.4-10 .8 Not Available [facility] ([facility]) [address] [facility], [place], [address], 10/07/2024 19:07:47 10/07/1910/07/2024 CBC WITH DIFFE RENTI AL/PL ATELE T RBC 4.72 x10e6 /uL 4.14-5 .80 Not Available [facility] ([facility]) [address] [facility], [place], [address], 10/07/2024 19:07:47 10/07/1910/07/2024 CBC WITH DIFFE RENTI AL/PL ATELE T hemoglobin 13.8 g/dL 13.0-1 7.7 Not Available [facility] ([facility]) [address] [facility], [place], [address], 10/07/2024 19:07:47 10/07/19 25 10/07/2024 CBC WITH DIFFE RENTI AL/PL ATELE T hematocrit 41.9 % 37.5-5 1.0 Not Available [facility] ([facility]) [address] [facility], [place], [address], 10/07/2024 19:07:47 10/07/1910/07/2024 CBC WITH DIFFE RENTI AL/PL ATELE T MCV 89 fL 79-97 Not Available [facility] ([facility]) [address] [facility], [place], [address], 10/07/2024 19:07:47 10/07/1910/07/2024 CBC WITH DIFFE RENTI AL/PL ATELE T MCH 29.2 pg 26.6-3 3.0 Not Available [facility] ([facility]) [address] [facility], [place], [address], 10/07/2024 19:07:47 10/07/1910/07/2024 CBC WITH DIFFE RENTI AL/PL ATELE T MCHC 32.9 g/dL 31.5-3 5.7 Not Available [facility] ([facility]) [address] [facility], [place], [address], 10/07/2024 19:07:47 10/07/1910/07/2024 CBC WITH DIFFE RENTI AL/PL ATELE T RDW 13.5 % 11.6-1 5.4 Not Available [facility] ([facility]) [address] [place], [address], 10/07/2024 19:07:47 10/07/1910/07/2024 CBC WITH DIFFE RENTI AL/PL ATELE T platelets 179 x10e3 /uL 150-45 0 Not Available [facility] ([facility]) [address] [place], [address], 10/07/2024 19:07:47 10/07/1910/07/2024 CBC WITH DIFFE RENTI AL/PL ATELE T neutrophils 66 % notest ab. Not Available [facility] ([facility]) [address] [place], [address], 10/07/2024 19:07:47 10/07/1910/07/2024 CBC WITH DIFFE RENTI AL/PL ATELE T lymphs 18 % notest ab. Not Available [facility] ([facility]) [address] [facility], [place], [address], 10/07/2024 19:07:47 10/07/1910/07/2024 CBC WITH DIFFE RENTI AL/PL ATELE T monocytes 10 % notest ab. Not Available [facility] ([facility]) [address] [place], [address], 10/07/2024 19:07:47 10/07/1910/07/2024 CBC WITH DIFFE RENTI AL/PL ATELE T eos 5 % notest ab. Not Available [facility] ([facility]) [address] [place], [address], 10/07/2024 19:07:47 10/07/1910/07/2024 CBC WITH DIFFE RENTI AL/PL ATELE T basos 1 % notest ab. Not Available [facility] ([facility]) [address] [place], [address], 10/07/2024 19:07:47 10/07/1910/07/2024 CBC WITH DIFFE RENTI AL/PL ATELE T neutrophils (absolute) 4.7 x10e3 /uL 1.4-7. 0 Not Available [facility] ([facility]) [address] [place], [address], 10/07/2024 19:07:47 10/07/1910/07/2024 CBC WITH DIFFE RENTI AL/PL ATELE T lymphs (absolute) 1.3 x10e3 /uL 0.7-3. 1 Not Available [facility] ([facility]) [address] [place], [address], 10/07/2024 19:07:47 10/07/19 25 10/07/2024 CBC WITH DIFFE RENTI AL/PL ATELE T monocytes(ab solute) 0.7 x10e3 /uL 0.1-0. 9 Not Available [facility] ([facility]) [address] [facility], [place], [address], 10/07/2024 19:07:47 10/07/19 25 10/07/2024 CBC WITH DIFFE RENTI AL/PL ATELE T eos (absolute) 0.4 x10e3 /uL 0.0-0. 4 Not Available [facility] ([facility]) [address] [facility], [place], [address], 10/07/2024 19:07:47 10/07/19 25 10/07/2024 CBC WITH DIFFE RENTI AL/PL ATELE T baso (absolute) 0.1 x10e3 /uL 0.0-0. 2 Not Available [facility] ([facility]) [address] [facility], [place], [address], 10/07/2024 19:07:47 10/07/1910/07/2024 CBC WITH DIFFE RENTI AL/PL ATELE T immature granulocytes 0 % notest ab. Not Available [facility] ([facility]) [address] [facility], [place], [address], 10/07/2024 19:07:47 10/07/19 25 10/07/2024 CBC WITH DIFFE RENTI AL/PL ATELE T immature grans (abs) 0.0 x10e3 /uL 0.0-0. 1 Not Available [facility] ([facility]) [address] [facility], [place], [address], 10/07/2024 19:07:47 01/28/20 24 01/28/2024 MRI, lower leg, w/o contr ast No observ ation record ed. [facility] [address], [place], [address], 02/06/2024 14:17:07 03/24/20 24 03/24/2024 US, doppl er, arter ial No observ ation record ed. [facility] [address], [place], [address], 03/25/2024 17:57:06 10/10/19 25 10/09/2024 US, duple x, arter ial, lower extre mity No observ ation record ed. [email or web address] [facility] [address], [place], [address], 10/10/2024 09:49:01 Result Notes None recorded. Problems Name Problem SNOMED Code Status Onset Date Resolution Date Notes Provider Name and Address Organization Details Recorded Time Cellulitis of lower limb 411832913 Active 2023 Claudio Rojas MA null, [place] - [facility] 4 15:33:35 Coronary atherosclerosi s 028517505 Active 2023 Claudio Rojas [place], [place] [facility] 4 15:33:36 Fatigue 18209156 Active 2023 Claudio Rojas [place], [place] [facility] 4 15:33:36 Essential hypertension 56033269 Active 2023 Claudio Rojas [place], [place] [facility] 4 15:33:37 Anemia 031989194 Active 2023 Claudio Rojas [place], [place] [facility] 4 15:33:38 Insomnia 634180743 Active 2023 Sobia Evans MD Attn: Salvador crane,[address] [facility], [place], [address], [place] - [facility] 4 15:21:59 Venous insufficiency of leg 614098071 Active 2024 Sobia Evans MD Attn: Salvador crane,[address], [place], [address], [place] [facility] 5 19:04:52 Problem Notes None recorded. Procedures Surgical History Date Name Laterality Status Provider Name and Address Organization Details Recorded Time 07/16/19 19 Back Surgery completed John Blackwood MA [facility] 12/31/2023 14:53:51 07/16/19 17 appendectomy completed John Blackwood MA [facility] 12/31/2023 14:53:23 07/16/19 03 Angioplasty With Stent completed John Blackwood MA [facility] 12/31/2023 14:53:12 07/16/19 03 coronary artery bypass graft completed John Blackwood MA [facility] 12/31/2023 14:55:06 07/16/18 88 Arthroscopic Surgery completed John Blackwood MA [facility] 12/31/2023 14:53:39 Imaging Results None recorded. Procedure Notes None recorded. Medical Equipment None Reported. Allergies Allergen ID Allergen Name Allergen Category Reaction Reaction Severity Criticality Documentation Date Start Date Code Code System Note Provider Name and Address Organization Details Recorded Time 17271122 cephalexi n medicatio n Not available Not available Not available 12/31/2023 2231 RxNorm [facility] 4 14:41:17 279378 amoxicill in medicatio n Not available Not available Not available 12/31/2023 723 RxNorm [facility] 4 14:42:45 154355 E-Mycin medicatio n Not available Not available Not available 12/31/2023 43432 8 RxNorm [facility] 4 14:43:37 Medications Name Sig Start Date Stop Date Status Note LastModified by Organization Details LastModified Time losartan 50 mg tablet TAKE 1 TABLET BY MOUTH EVERY DAY active Not Available Not Available No t Available atorvasta tin 40 mg tablet TAKE 1 TABLET BY MOUTH EVERY DAY active Not Available Not Available No t Available doxycycli ne hyclate 100 mg capsule Take 1 capsule twice a day by oral route for 10 days. 12/20 completed Not Available Not Available Not Available benzonata te 200 mg capsule TAKE 1 CAPSULE BY MOUTH TWICE A DAY FOR 10 DAYS active Not Available Not Available No t Available prednison e 20 mg tablet TAKE 1 TABLET BY MOUTH EVERY 12 HOURS FOR 5 DAYS active Not Available Not Available No t Available clopidogr el 75 mg tablet TAKE 1 TABLET BY MOUTH EVERY DAY active Not Available Not Available No t Available aspirin 81 mg tablet,de layed release Take 1 tablet every day by oral route. active Not Available Not Available No t Available isosorbid e mononitra te ER 60 mg tablet,ex tended release 24 hr TAKE 1 TABLET BY MOUTH EVERY DAY active Not Available Not Available No t Available trazodone 100 mg tablet TAKE 1 TABLET BY MOUTH EVERY DAY AT BEDTIME NEEDED FOR INSOMNIA 2024 active Not Available Not Available Not Avai lable losartan 25 mg tablet Take 1 tablet every day by oral route. 03/10 completed Patient stated he got it switched from his speciali st Not Available Not Available Not Available metoprolo l succinate ER 25 mg tablet,ex tended release 24 hr TAKE 1 TABLET BY MOUTH EVERY DAY active Not Available Not Available No t Available ipratropi um bromide 21 mcg (0.03 %) nasal spray SPRAY 2 SPRAYS BY INTRANAS AL ROUTE TWICE A DAY 2023 active Not Available Not Available Not Avai lable Vitals Date Recorded Body height Body mass index (BMI) Body weight Heart rate Oxygen saturation Oxygen saturation in Arterial blood by Pulse oximetry Systolic And Diastolic Provider Name and Address Organization Details Last Updated DateTime 5 172.72 cm 26.7 kg/m2 55054.5 4 g 51 /min 97 % 97 % 118/70 mm[Hg] Yanique Monteiro MA [place] - [facility] 5 11:06:35 Date Recorded Body height Body mass index (BMI) Body weight Heart rate Oxygen saturation Oxygen saturation in Arterial blood by Pulse oximetry Systolic And Diastolic Provider Name and Address Organization Details Last Updated DateTime 5 172.72 cm 26.5 kg/m2 67819.1 5 g 61 /min 98 % 98 % 124/68 mm[Hg] Sherin Gardner MA [place] - [facility] 5 11:08:01 Date Recorded Body height Body mass index (BMI) Body weight Heart rate Oxygen saturation Oxygen saturation in Arterial blood by Pulse oximetry Systolic And Diastolic Provider Name and Address Organization Details Last Updated DateTime 4 172.72 cm 26.3 kg/m2 29357.4 8 g 66 /min 98 % 98 % 128/80 mm[Hg] Nevin Bailey MA [facility] 4 13:54:58 Date Recorded Body height Body mass index (BMI) Body weight Heart rate Oxygen saturation Oxygen saturation in Arterial blood by Pulse oximetry Systolic And Diastolic Provider Name and Address Organization Details Last Updated DateTime 4 172.72 cm 26.3 kg/m2 20618.9 1 g 72 /min 97 % 97 % 110/62 mm[Hg] Sherin Gardner MA [facility] 4 14:30:44 Date Recorded Body height Body mass index (BMI) Body weight Heart rate Oxygen saturation Oxygen saturation in Arterial blood by Pulse oximetry Systolic And Diastolic Provider Name and Address Organization Details Last Updated DateTime 4 172.72 cm 26.5 kg/m2 93178.4 3 g 66 /min 99 % 99 % 118/56 mm[Hg] Katerine Aponte MA [facility] 4 15:00:53 Social History Question Answer Notes LastModified by Organizat ion Details LastModified Time Tobacco Smoking Status Never Smoker John Blackwood MA [facility] 12/31/2023 14:52:04 Do You Have An Advance Directive? Yes Information not available 12/31/2023 Are You Blind Or Do You Have Difficulty Seeing? Yes Wears Glasses Information not available 12/31/2023 What Is Your Level Of Caffeine Consumption? Moderate Information not available 12/31/2023 In The 14 Days Before Symptom Onset, Have You Had Close Contact With A Laboratory-confir med COVID-19 While That Case Was Ill? No Information not available 03/10/2024 In The 14 Days Before Symptom Onset, Have You Had Close Contact With A Person Who Is Under Investigation For COVID-19 While That Person Was Ill? No Information not available 03/10/2024 Have You Been To An Area Known To Be High Risk For COVID-19? No Information not available 03/10/2024 Are You Deaf Or Do You Have Serious Difficulty Hearing? No Information not available 12/31/2023 What Type Of Diet Are You Following? REGULAR Information not available 12/31/2023 Are There Any Guns Present In Your Home? No Information not available 03/10/2024 What Was The Date Of Your Most Recent Tobacco Screening? 10/27/2024 Information not available 10/27/2024 What Is Your Relationship Status? Information not available 12/31/2023 Do You Use Your Seat Belt Or Car Seat Routinely? Yes Information not available 12/31/2023 Do You Have Smoke And Carbon Monoxide Detectors In Your Home? Yes Information not available 12/31/2023 Do You Use Sunscreen Routinely? Yes Information not available 03/10/2024 Has Tobacco Cessation Counseling Been Provided? No Information not available 12/31/2023 Sex: Male Functional Status Question Answer Note LastModified by Organizat ion Details LastModified Time Do you use any illicit or recreational drugs? No Information not available 12/31/2023 Do you or have you ever used any other forms of tobacco or nicotine? No Information not available 12/31/2023 What is your level of alcohol consumption? Occasional Information not available 12/31/2023 Are you currently employed? No retired Information not available 12/31/2023 Are you able to care for yourself? Yes Information not available 12/31/2023 What is your exercise level? None Information not available 12/31/2023 Mental Status Question Answer Note LastModified by Organization D etails LastModified Time Do you feel stressed (tense, restless, nervous, or anxious, or unable to sleep at night)? [id number] Information not available 12/31/2023 Family History Relationship Description Onset Age of this Age Resolved Age Notes LastModified by Organization Details LastModified Time Mother Cerebrovascu lar accident bandersonma Not available 0 12/31/2023 14:50:56 Mother Myocardial infarction bandersonma Not available 14:51:39 Brother Coronary arterioscler osis bandersonma Not available 12/14 14:51:08 Brother Myocardial infarction bandersonma Not available 14:51:40 Father Coronary arterioscler osis bandersonma Not available 12/14 14:51:08 Father Heart disease bandersonma Not available 12/14 14:51:15 Father Hypercholest erolemia bandersonma Not available 12/14 14:51:22 Father Hypertensive disorder bandersonma Not available 12/14 14:51:26 Father Myocardial infarction bandersonma Not available 14:51:39 Notes:No new family history, me/rma Medical History Condition Response Coronary Artery Disease Y Other N Atrial Fibrillation N High Blood Pressure Y Thyroid Problems N Kidney or Bladder Problems N Depression N COPD N Blood Clots Y GI Problems N Skin Problems N Anemia N Heart Attack (OK) Y Diabetes N Anxiety Disorder N Muscle, Joint, or Bone Problems N Seizures/Epilepsy N Acid Reflux (GERD) N Cancer N Stroke N Allergies N Asthma N High Cholesterol Y Hepatitis N Liver Disease N Headaches N Osteoporosis N Heart Failure N Past Encounters Encounter ID Performer Location Encounter Start Date Encounter Closed Date Diagnosis/Indication Diagnosis SNOMED-CT Code Diagnosis ICD10 Code Diagnosis Note [id number] Sobia Evans MD [facility] [employer] [facility] [place] [address] [place] [address] 12/31/2023 14:11:22 12/31/2023 15:30:51 Cellulitis of lower limb 448405791 L03.119 Coronary atherosclerosis 638213744 I25.10 Fatigue 34891439 R53.83 Essential hypertension 11159175 I10 Anemia 163396733 D64.9 Screening for malignant neoplasm of prostate 347775961 Z12.5 Insomnia 005387748 G47.0 0 [id number] Sobia Evans MD [facility] [employer] [facility] [place] [address] [place] [address] 01/14/2024 11:52:27 01/14/2024 13:10:10 Pain in right lower limb 145995139 M79.609 [id number] Sobia Evans MD [facility] [employer] [facility] [place] [address] [place] [address] 02/04/2024 13:37:42 02/04/2024 14:47:40 Obesity 300362028 E66.8 Pain in ri ght lower limb 099894158 M79.149 [id number] Sobia Evans MD [facility] [employer] [facility] [place] [address] [place] [address] 03/10/2024 14:09:20 03/10/2024 15:48:10 Overweight 556025906 E66.3 Essential hypertension 12749178 I10 Pain in ri ght lower limb 206190642 M79.899 [id number] Sobia Evans MD [facility] [employer] [facility] [place] [address] [place] [address] 05/12/2024 14:47:13 05/12/2024 16:10:02 Chronic rhinitis 44265492 J31.0 Essential hypertension 00583028 I10 Insomnia 556884410 G47.0 0 Coronary atherosclerosis 838116207 I25.10 [id number] Sobia Evans MD [facility] [employer] [facility] [place] [address] [place] [address] 07/28/2024 10:52:21 07/28/2024 11:51:48 Body mass index 25-29 - overweight 560536439 Z68.26 Overweight 507727536 E66 .3 Edema of r ight lower leg 053605536 R60.0 Essential hypertension 92593353 I10 Coronary atherosclerosis 814629868 I25.10 Insomnia 890570297 G47.0 0 Pain in ri ght lower limb 258524505 M79.186 [id number] Sobia Evans MD [facility] [facility] [place] [address] [place] [address] 10/27/2024 10:38:22 10/27/2024 11:51:55 Body mass index 25-29 - overweight 779581323 Z68.26 Overweight 359570200 E66 .3 Screening for malignant neoplasm of colon 476009937 Z12.11 Coronary atherosclerosis 655856650 I25.10 Essential hypertension 15823777 I10 Insomnia 358261860 G47.0 0 Health Concerns Section Related Observation LastModified by Organization Detai ls LastModified Time None Recorded Concern Status LastModified by Organization Details LastModified Time None Recorded Advance Directives Directive Y: Payers Insurance Date Sequence Insurance Name Policy Number Policy Palma Covered Member ID Palma Member ID Guarantor Name 10/24/2024 [place] - [place]HC - [facility]QHC Jose Hand [id number] 1 Jose Hand 12/02/2024 2 [facility] [facility] (MEDICARE SUPPLEMENT) Jose Hand [id number] Jose Hand 10/24/2024 1 [place] Jose Hand [id number] 1 Jose Hand Notes Date Note Type Note Provider Name and Address Organization Details Recorded Time 02/04/2024 text/html he saw the orthopedist but they did not even comment on his MRI there is sending him for some type of vascular study he has already had a venous duplex that has been negative Sobia Evans MD Attn: Accounting, [address] [place], [address], [facility] 02/04/2024 22:14:05 03/10/2024 text/html still with some pain in that right medial thigh and proximal gastrocnemius area. Sobia Evans MD Attn: Accounting, [address] [place], [address], [facility] 03/17/2024 15:45:04 05/12/2024 text/html CAD no chest jesica n chronic rhinitis has been bothering him for quite some time nothing to suggest active infection of the sinuses insomnia stable hypertension blood pressure looks good leg pain following with ortho Sobia Evans MD Attn: Accounting, [address] [place], [address], [facility] 05/12/2024 22:15:09 07/28/2024 text/html Hypertension 110 /70 no problems there. Still having leg pain. And some swelling from time to time. He has seen Cardiology as well as Orthopedic surgery. Has insomnia seems to be doing okay. CAD there is no chest pain no shortness a breath Sobia Evans MD Attn: Accounting, [address] [place], [address], [facility] 08/03/2024 20:33:41 10/27/2024 text/html CAD no chest jesica n chronic rhinitis stable insomnia stable hypertension blood pressure looks good leg pain following with ortho workup by the vascular doctor venous insufficiency Sobia Evans MD Attn: Accounting[address] [facility], [place], [address], [facility] 11/29/2024 19:05:37
[2025-01-29 10:19] VITALS: BP 162/78; PULSE 70; RESP 20; TEMP 36.8; O2SAT 99; BMI 24.7
[2025-01-29] MEDS: LACTATED RINGERS 1,000 ML 150 ML IV CONT (10:27)
--- NOTE | 2025-01-29 10:51 | P.PNAN_ITS ---
Anes - Initial Pre Proc Eval Procedure: Operation Date: 01/29/25 11:30 Proposed Procedures p Screening Colonoscopy - Ronald Johnson MD Date/Time: 01/29/25 10:51 Surgeon: Ronald Johnson MD Pre Op Diagnosis: Encounter for screening for malignant neoplasm of Patient Data Age: 74 Gender: M Height: 1.75 m Weight: 76 kg Last Vital Signs Temp 98.3 F 01/29/25 10:19 Pulse 70 01/29/25 10:19 Resp 20 01/29/25 10:19 BP 162/78 H 01/29/25 10:19 Pulse Ox 99 01/29/25 10:19 O2 Del Method Room Air 01/29/25 10:19 Allergies Allergy/AdvReac Type Severity Reaction Status Date / Time doxycycline Allergy Severe Swelling Verified 01/29/25 10:18 Home Medications ?Medication ?Instructions ?Recorded ?Confirmed ?Type atorvastatin 40 mg tablet 40 mg PO DAILY 06/09/19 01/29/25 History isosorbide mononitrate 60 mg 60 mg PO DAILY 06/09/19 01/29/25 History tablet,extended release 24 hr losartan 25 mg tablet 25 mg PO DAILY 06/09/19 01/12/25 History omeprazole 20 mg capsule,delayed 20 mg PO DAILY 06/09/19 01/12/25 History release prasugrel HCl 10 mg tablet 10 mg PO DAILY 06/09/19 01/12/25 History (Effient) clotrimazole-betamethasone 1 1 applic topical BID #15 grams 08/19/19 01/12/25 Rx %-0.05 % topical cream (Lotrisone) aspirin 81 mg tablet,delayed 81 mg PO DAILY 01/29/24 01/29/25 History release (Adult Aspirin Regimen) clopidogrel 75 mg tablet 75 mg PO DAILY 01/29/24 01/29/25 History metoprolol succinate 25 mg 25 mg PO DAILY 01/29/24 01/29/25 History tablet,extended release 24 hr trazodone 100 mg tablet 100 mg PO QHS PRN insomnia 01/29/24 01/12/25 History losartan 50 mg tablet 50 mg PO DAILY 01/12/25 01/29/25 History Patient hx anesthesia problems: none Family hx anesthesia problems: none Results Review: All pre-operative results and documents have been reviewed as part of the pre- operative evaluation. [facility] Past Medical History Medical History Strain of right calf muscle Lumbosacral radiculopathy due to degenerative joint disease of spine Tear of right hamstring Arterial occlusion, lower extremity Chondromalacia, right knee Acute medial meniscus tear of right knee Fungal skin disease DVT (deep venous thrombosis) Left leg after an injury to the left knee Degenerative disc disease, cervical Right clavicle fracture Kidney stone GERD (gastroesophageal reflux disease) IBS (irritable bowel syndrome) Mixed Esophageal ulcer Sleep apnea treated with nocturnal BiPAP Pneumonia x2 Rheumatic fever HTN (hypertension) HLD (hyperlipidemia) CAD (coronary artery disease) History of triple bypass surgery in 2001. Approximately 8 stents over several years. Myocardial infarction x3 Surgical History Surgical History H/O left knee surgery Due to meniscal tear Left Achilles tendinitis (03/13/19) History of cholecystectomy H/O angioplasty x2 H/O cardiac catheterization H/O heart artery stent x8 Hx of CABG Family History Family History Mother Family history of cardiovascular disease Father Family history of cardiovascular disease Son Family history of cardiovascular disease Other Hypertension Social History Social History Social History: The patient lives with his Cuca who is designated to be the durable power deputy attorney general for healthcare. If the is unable to do the power of deputy attorney general then the daughter Vicky will take over from there. Patient is lifelong nonsmoker. He they have 3 children together. 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 Smoking status: Never smoker Alcohol intake: current Drinks per week: 1 Substance use: never Substance use type: does not use Living arrangements: with family Occupation/Education: retired Gender identity (if verbalized by the patient): Male Spiritual care concerns: No Agree to blood products: Yes Anes - Eval Final PreProcedure Day of Procedure 01/29/25 10:51 Patient weight: overweight Lungs: normal air movement Airway: Mallampati scale class II Neurological: alert and oriented Last oral intake: >/= 8 hours ASA classification: III Emergent: no Anesthetic plan: proceed Anesthesia type and monitoring: general GIVS and standard monitoring Results Review: All pre-operative results and documents have been reviewed as part of the pre- operative evaluation. HTN, hyperlipidemia, CABG x 3 2001/, s/p PTCA x approx 10 last 2018, plavix on hold. Pt walks 5 miles/day, no cp or sob. SHANEKA on home bipap. Informed Consent: The patient's anesthetic plan and its attendant risks and benefits were discussed with the patient/family/POA. Questions were solicited and answers provided to the satisfaction of the patient/family/POA.
--- NOTE | 2025-01-29 11:18 | P.HP_ITS ---
History of Present Illness History of Present Illness Consent: Risks, benefits, and alternatives have been discussed and questions answered. Patient agrees to proceed with procedure. Chief complaint: Encounter for screening for malignant neoplasm of Narrative: Jose Hand is a 74 year old male here for screening colonoscopy Review of Systems Review of Systems: All systems reviewed & are unremarkable except as noted in HPI and below PMFSH Past Medical History Medical History (Updated 01/29/25 @ 11:18 by Ronald Johnson MD) Colon cancer screening Strain of right calf muscle Lumbosacral radiculopathy due to degenerative joint disease of spine Tear of right hamstring Arterial occlusion, lower extremity Chondromalacia, right knee Acute medial meniscus tear of right knee Fungal skin disease DVT (deep venous thrombosis) Left leg after an injury to the left knee Degenerative disc disease, cervical Right clavicle fracture Kidney stone GERD (gastroesophageal reflux disease) IBS (irritable bowel syndrome) Mixed Esophageal ulcer Sleep apnea treated with nocturnal BiPAP Pneumonia x2 Rheumatic fever HTN (hypertension) HLD (hyperlipidemia) CAD (coronary artery disease) History of triple bypass surgery in 2001. Approximately 8 stents over several years. Myocardial infarction x3 Surgical History Surgical History H/O left knee surgery Due to meniscal tear Left Achilles tendinitis (03/13/19) History of cholecystectomy H/O angioplasty x2 H/O cardiac catheterization H/O heart artery stent x8 Hx of CABG Family History Family History Mother Family history of cardiovascular disease Father Family history of cardiovascular disease Son Family history of cardiovascular disease Other Hypertension Social History Social History Social History: The patient lives with his Cuca who is designated to be the durable power civil attorney for healthcare. If the is unable to do the power of civil attorney then the daughter Vicky will take over from there. Patient is lifelong nonsmoker. He they have 3 children together. 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 Smoking status: Never smoker Alcohol intake: current Drinks per week: 1 Substance use: never Substance use type: does not use Living arrangements: with family Occupation/Education: retired Gender identity (if verbalized by the patient): Male Spiritual care concerns: No Agree to blood products: Yes Meds Home Medications and Allergies Home Medications ?Medication ?Instructions ?Recorded ?Confirmed ?Type atorvastatin 40 mg tablet 40 mg PO DAILY 06/09/19 01/29/25 History isosorbide mononitrate 60 mg 60 mg PO DAILY 06/09/19 01/29/25 History tablet,extended release 24 hr losartan 25 mg tablet 25 mg PO DAILY 06/09/19 01/12/25 History omeprazole 20 mg capsule,delayed 20 mg PO DAILY 06/09/19 01/12/25 History release prasugrel HCl 10 mg tablet 10 mg PO DAILY 06/09/19 01/12/25 History (Effient) clotrimazole-betamethasone 1 1 applic topical BID #15 grams 08/19/19 01/12/25 Rx %-0.05 % topical cream (Lotrisone) aspirin 81 mg tablet,delayed 81 mg PO DAILY 01/29/24 01/29/25 History release (Adult Aspirin Regimen) clopidogrel 75 mg tablet 75 mg PO DAILY 01/29/24 01/29/25 History metoprolol succinate 25 mg 25 mg PO DAILY 01/29/24 01/29/25 History tablet,extended release 24 hr trazodone 100 mg tablet 100 mg PO QHS PRN insomnia 01/29/24 01/12/25 History losartan 50 mg tablet 50 mg PO DAILY 01/12/25 01/29/25 History Allergies Allergy/AdvReac Type Severity Reaction Status Date / Time doxycycline Allergy Severe Swelling Verified 01/29/25 10:18 Vital Signs Vital Signs - 24 hr 01/29/25 10:19 Temperature 98.3 F Pulse Rate 70 Respiratory Rate 20 Blood Pressure 162/78 H Pulse Oximetry 99 Oxygen Delivery Room Air Exam Const: General: comfortable and no acute distress HENMT: Face/Nose/Sinus: Normal nares present Eyes: General: appearance normal, both eyes and all related structures Neck: Neck: no JVD Resp: Auscultation: clear to auscultation bilaterally Cardio: Rate: regular rate Rhythm: regular rhythm GI: Inspection: non-distended GI Palp: Yes Soft to palpation Skin: General skin exam: normal color Neuro: Speech: normal speech Extrem: General: normal to inspection Psych: Mental Status: mental status grossly normal Assessment and Plan Assessment and plan (1) Colon cancer screening: Code(s): Z12.11 - Encounter for screening for malignant neoplasm of colon Status: Acute Assessment and Plan: colonoscopy
--- NOTE | 2025-01-29 11:31 | S_PTH ---
PATIENT: Jose Hand LOC: TROY Perez#:[id number] AGE/SX: 74/M ROOM: RE01/29/[address]: Ronald Johnson MD : 1950 BED: DIS: 01/29/2025 SPEC #: [id number] RECD: 01/29/25 11:58 STATUS: MARGA RECollette #: [id number] BRYSON: 01/29/25 11:[address]: Ronald Johnson DEPT: [facility] Surgical RECD BY: Barbara Hodge ENTERED: 01/29/25 11:58 SP TYPE: Surgical OTHR DR: Raoul Evans, Tissues: A - Colon Polypectomy Procedures: Hematoxylin and Eosin Stain Gross and Microscopic Level 4
[2025-01-29 11:34] VITALS: BP 121/60; PULSE 60; RESP 25; O2SAT 99
[2025-01-29 11:44] VITALS: BP 127/67; PULSE 57; RESP 20; O2SAT 100
[2025-01-29 11:54] VITALS: BP 148/67; PULSE 56; RESP 18; O2SAT 99
== END 2025-01-29 12:05 | disposition home or self-care (01) ==
PROVIDERS: PCP Internal Medicine; Visit Provider Internal Medicine Gastroenterology
PROC: 0DJD8ZZ Inspection of Lower Intestinal Tract, Via Natural or Artificial Opening Endoscopic (ICD-10-PCS; CPT 45378; principal; 2025-01-29 11:30)
DX: Z12.11 Encounter for screening for malignant neoplasm of colon (principal); D12.5 Benign neoplasm of sigmoid colon; K57.30 Diverticulosis of large intestine without perforation or abscess without bleeding
CPT/HCPCS: 45385; 88305; J2003; J2704; J7120

== ENCOUNTER 2025-03-02 11:00 | Outpatient (CLI) | payer MEDICARE, OTHER, SELFPAY ==
--- NOTE | ~2025-03-02 | XR_ITS ---
AP and lateral views of the right tibia/fibula Clinical History: Pain Findings: No acute fracture or dislocation is seen. Osseous alignment is anatomic. Joint spaces are p reserved without significant erosive or degenerative change. Soft tissues are unremarkable. Impression: Unremarkable right tib-fib radiographs. Reviewed, dictated and finalized at [facility]. Impression: Unremarkable right tib-fib radiographs.
--- OUTSIDE RECORDS SUMMARY | 2025-03-02 12:17 | XMS_ITS | Clinical Summary ---
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 Temperature 36.7 C (98.1 F) 07/31/2024 10:06 AM 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 Respiratory Rate 14 07/31/2024 10:06 AM 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 Oxygen Saturation 98% 07/31/2024 10:06 AM 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 Inhaled Oxygen Concentration - - Weight 99.5 kg (219 lb 4.8 oz) 07/31/2024 10:06 AM 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 Height 175.3 cm (5' 9) 07/31/2024 10:06 AM 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 Body Mass Index 32.38 07/31/2024 10:06 AM 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 Plan of Treatment Upcoming Encounters Date Type Department Care Team (Late st Contact Info) Description 03/05/2025 10:45 AM CDT Office Visit [facility] - Pulmonology & Sleep Medicine [facility] [address] [place] [address] Evaristo Hutchins MD [address] [place] [address] Health Maintenance Due Date Last Done Comments Hepatitis C Virus (HCV) Screening 1950 TdaP Immunization 1950 Cologuard 1996 Immunochemical Fecal Occult Blood 1996 Zoster Immunization (1 of 2) 2001 Pneumococcal Immunization (50+ years) (2 of 2 - PCV20 or PCV21) 05/05/2020 05/05/2019 SARS-COV-2 Immunization (3 - season) 2024 10/04/2020, 08/25/2020 Influenza Immunization (#1) 2025 11/, 06/13/2023, 04/27/2022, Additional history exists Respiratory Syncytial [...] age to complete this topic Insurance MEDICARE [facility] Care Teams Station Manager Relationship Specialty Start Date End Date Viviana Dodge MD [address] [place] [id number] PCP - General Family Medicine 09/27/22 Evaristo Hutchins MD [address] [place] [id number] Consulting Physician Pulmonary Disease 09/27/22
--- OUTSIDE RECORDS SUMMARY | 2025-03-02 12:17 | XMS_ITS | Clinical Summary ---
Author Organization [facility] Address [address] [facility] [place] [address] Care Team Providers Care Endoscopy Tech Name Role Phone Dada Martinez MD Primary Care Provider [phone] Source Comments [facility],non-owned Affiliates and Associated Physician Practices is amultiple site organization consisting of ambulatory clinics and hospital sitesin [place], [place] and [place]. This disclosure is being madepursuant to the Care Everywhere program and may not contain all information available regarding this patient. 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 Gender Identity Not on file Sexual Orientation [...] to complete this topic Insurance MEDICARE MEDICARE [facility] [place] [id number] SELF PAY NO INSURANCE Member Subscriber Plan / Payer (Ef fective for All Dates) Name:Jessica Long Member ID:Not on file Relation to Subscriber:Not on file Name:JESSICA LONG Subscriber ID:Not on file (Home) Address: [facility] [place] [address] Payer ID:Not on file Group ID:Not on file Type:Self Pay Address: [place], [place] Care Teams Endoscopy Tech Relationship Specialty Start Date End Date Dada Martinez MD [address] [address] PCP - General Internal Medicine 10/25/21
[2025-03-02 12:47] LABS: Hematocrit 42.0 % (42.0-52.0); Hemoglobin 13.2 g/dL (14.0-18.0); Immature Granulocyte Percent A 0.4 % (0-0.5); Lymphocytes Absolute Auto 1.56 K/mm3 (0.9-3.2); Mean Corpuscular HGB Conc 31.4 g/dl (32-36); Mean Corpuscular Hemoglobin 28.7 pg (26-34); Mean Corpuscular Volume 91.3 fl (80-100); Nucleated Red Blood Cells Absolute Auto 0.000 K/mm3 (0.0-0.012); Nucleated Red Blood Cells Perc 0.0 % (0.0-0.2); Platelet Count Result 190 k/mm3 (150-375); Red Blood Count 4.60 M/mm3 (4.6-6.20); White Blood Count 7.8 K/mm3 (4.5-10.0)
[2025-03-02 13:06] LABS: Alanine Aminotransferase 27 U/L (6-50); Albumin Level 4.1 g/dL (3.5-5.1); Alkaline Phosphatase 58 U/L (38-126); Anion Gap 5 mmol/L (4-12); Aspartate Amino Transferase 37 U/L (17-59); Bilirubin,Total 0.5 mg/dL (0.2-1.3); Blood Urea Nitrogen 14 mg/dL (9-20); Calcium 9.5 mg/dL (8.4-10.2); Carbon Dioxide 30 mmol/L (22-30); Chloride 105 mmol/L (98-107); Cholesterol 164 mg/dL (0-200); Estimated Glomerular Filt Rate > 60; Glucose 97 mg/dL (65-110); HDL Direct 78 mg/dL; Potassium 5.4 mmol/L (3.4-5.0); Sodium 140 mmol/L (137-145); Total Protein 7.1 g/dL (6.3-8.2); Triglycerides 68 mg/dL (<150)
== END 2025-03-02 11:01 | disposition home or self-care (01) ==
PROVIDERS: PCP Internal Medicine; Visit Provider Internal Medicine
DX: M79.604 Pain in right leg (principal); I10 Essential (primary) hypertension
CPT/HCPCS: 36415; 73590; 80053; 80061; 85025